=== PATIENT | female | born 1990 | race American Indian/Alaskan Native ===

== ENCOUNTER 2016-12-01 09:06 | Emergency (ER) | payer SELFPAY ==
[2016-12-01 09:55] LABS: Basophils % (Auto) 0.4 % (0.0-1.8); Eosinophils % (Auto) 1.2 % (0.0-4.3); Hematocrit 38.1 % (30.3-42.9); Hemoglobin 12.6 gm/dl (10.1-14.3); Mean Corpuscular HGB Conc 33 % (30-34); Mean Corpuscular Hemoglobin 30 pg (28-32); Mean Corpuscular Volume 90 fl (79-97); Platelet Count 249 K/mm3 (140-440); Red Blood Count 4.23 M/mm3 (3.65-5.03); Red Cell Distribution Width 15.4 % (13.2-15.2)
[2016-12-01 10:08] LABS: Alanine Aminotransferase 12 units/L (7-56); Albumin 3.8 g/dL (3.9-5); Albumin/Globulin Ratio 1.1 %; Alkaline Phosphatase 37 units/L (35-129); Anion Gap 18 mmol/L; Blood Urea Nitrogen 6 mg/dL (7-17); Calcium 9.2 mg/dL (8.4-10.2); Carbon Dioxide 22 mmol/L (22-30); Chloride 97.7 mmol/L (98-107); Glucose 78 mg/dL (65-100); Lipase 12 units/L (13-60); Potassium 3.7 mmol/L (3.6-5.0); Sodium 134 mmol/L (137-145); Total Protein 7.4 g/dL (6.3-8.2)
[2016-12-01 10:45] LABS: Bacteria,Urine 2+ /HPF (Negative); Bilirubin,Urine NEG (Negative); Blood,Urine NEG (Negative); Ketones,Urine 80 mg/dL (Negative); Leukocyte Esterase,Urine LG (Negative); Mucus,Urine 2+ /HPF; Nitrite,Urine NEG (Negative); Protein,Urine <15 mg/dL mg/dL (Negative); Urobilinogen,Urine < 2.0 mg/dL (<2.0)
--- NOTE | 2016-12-01 12:13 | Ultrasound Report ---
ULTRASOUND OB LESS THAN 14 WEEKS ULTRASOUND OB TRANSVAGINAL HISTORY: Abdominal pain during . FINDINGS: Transabdominal and transvaginal imaging was performed. The uterus measures 11 x 8 x 9 cm. An intrauterine is identified with heart rate measuring 173 beats per minute. Estimated age on ultrasound 9 weeks, 3 days. Estimated due date 07/03/17. The ovaries are unremarkable. No adnexal cyst or mass. No pelvic fluid collection. IMPRESSION: Viable, single intrauterine . No acute abnormality is appreciated.
--- NOTE | 2016-12-01 14:14 | Emergency Department Report ---
ED General Adult HPI - General Chief complaint: Abdominal Pain Stated complaint: /LOWER ABD PAIN Time Seen by Provider: 12/01/16 13:45 Source: patient, RN notes reviewed Mode of arrival: Ambulatory Limitations: No Limitations - History of Present Illness Initial comments: 26-year-old female presents to the emergency department complaining of abdominal pain. Patient states she is approximately 8 weeks , A1. She describes cramping lower abdominal pain that has been intermittent for the past 3 weeks. She reports nausea and vomiting intermittently for approximately 5 weeks. She denies fever, diarrhea, vaginal bleeding, or vaginal discharge. She is also complaining of nasal congestion. There are no other complaints. -: Gradual, week(s) (3) Location: abdomen Radiation: non-radiation Severity scale (0 -10): 3 Quality: other (cramping) Consistency: intermittent Improves with: none Worsens with: none Associated Symptoms: nausea/vomiting Treatments Prior to Arrival: none - Related Data Previous Rx's Medication Instructions Recorded Last Taken Type Cetirizine HCl [ZyrTEC] 10 mg PO DAILY #20 tab.chew 11/28/15 Unknown Rx Sulfamethoxazole/Trimethoprim 1 each PO BID #20 tablet 11/28/15 Unknown Rx [Bactrim DS TAB] Allergies Allergy/AdvReac Type Severity Reaction Status Date / Time No Known Allergies Allergy Verified 11/27/15 23:29 ED Review of Systems ROS: Stated complaint: /LOWER ABD PAIN Other details as noted in HPI Comment: All other systems reviewed and negative ENT: congestion Gastrointestinal: abdominal pain, nausea, vomiting ED Past Medical Hx - Past Medical History Previous Medical History?: No - Surgical History Past Surgical History?: No - Family History Family history: no significant - Social History Smoking Status: Former Smoker Substance Use Type: None - Medications Home Medications: Home Medications Medication Instructions Recorded Confirmed Last Taken Type Cetirizine HCl [ZyrTEC] 10 mg PO DAILY #20 tab.chew 11/28/15 Unknown Rx Sulfamethoxazole/Trimethoprim 1 each PO BID #20 tablet 11/28/15 Unknown Rx [Bactrim DS TAB] ED Physical Exam - General Limitations: No Limitations General appearance: alert, in no apparent distress - Head Head exam: Present: atraumatic, normocephalic - Eye Eye exam: Present: normal appearance, PERRL, EOMI - ENT ENT exam: Present: normal exam, normal orophraynx, mucous membranes moist - Neck Neck exam: Present: normal inspection, full ROM. Absent: tenderness - Respiratory Respiratory exam: Present: normal lung sounds bilaterally. Absent: respiratory distress - Cardiovascular Cardiovascular Exam: Present: regular rate, normal rhythm, normal heart sounds - GI/Abdominal GI/Abdominal exam: Present: soft, normal bowel sounds. Absent: distended, tenderness - Extremities Exam Extremities exam: Present: normal inspection, full ROM. Absent: tenderness - Back Exam Back exam: Present: normal inspection, full ROM. Absent: tenderness - Neurological Exam Neurological exam: Present: alert, oriented X3. Absent: motor sensory deficit - Skin Skin exam: Present: warm, dry, intact ED Course Vital Signs 12/01/16 09:18 Temperature 98.6 F Pulse Rate 101 H Respiratory 16 Rate Blood Pressure 135/83 O2 Sat by Pulse 100 Oximetry ED Medical Decision Making - Lab Data Result diagrams: 12/01/16 09:30 12/01/16 09:30 - Radiology Data Radiology results: report reviewed Pelvic ultrasound reveals a single, live intrauterine with estimated gestational age of 9 weeks, 3 days. heart rate is measured at 173 bpm. There are no other acute abnormalities. - Medical Decision Making Lab and imaging results reviewed and discussed with the patient. 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 - Differential Diagnosis abdominal pain, dehydration, UTI Critical care attestation.: If time is entered above; I have spent that time in minutes in the direct care of this critically ill patient, excluding procedure time. ED Disposition Clinical Impression: Abdominal pain affecting Disposition: DISCHARGED TO HOME OR SELFCARE Is pt being admited?: No Condition: Stable Instructions: Abdominal Pain (ED) Additional Instructions: You may take Tylenol for pain and Benadryl for nasal congestion. Be sure to follow up with your EXCEPTIONAL STUDENT EDUCATION TEACHER. If symptoms worsen, or new symptoms develop, return to the emergency department. Referrals: DANIELLE BROWN MD [Staff Physician] - 3-5 Days Time of Disposition: 14:14
[2016-12-01 14:27] VITALS: BP 118/68
== END 2016-12-01 14:27 | disposition home or self-care (01) ==
LOC: ED 09:06
DX: O26.891 Other specified pregnancy related conditions, first trimester (principal); R10.30 Lower abdominal pain, unspecified; Z87.891 Personal history of nicotine dependence; Z3A.01 Less than 8 weeks gestation of pregnancy
CPT/HCPCS: 36415; 76801; 76830; 80053; 81001; 83690; 84702; 84703; 85025

== ENCOUNTER 2020-08-05 08:33 | Outpatient (CLI) | payer MEDICAID ==
[2020-08-05 10:18] VITALS: BP 131/83
== END 2020-08-05 10:27 | disposition home or self-care (01) ==
LOC: TRG 08:33
PROVIDERS: ATTEND Obstetrics & Gynecology
DX: O26.853 Spotting complicating pregnancy, third trimester (principal); Z3A.37 37 weeks gestation of pregnancy
CPT/HCPCS: 59025

== ENCOUNTER 2020-08-05 23:06 | Inpatient (IN) | payer MEDICAID ==
[2020-08-05] MEDS ORDERED: fentaNYL 100 MCG/2 ML INJ IV PRN (23:32)
[2020-08-05] MEDS ORDERED: MINERAL OIL 30 ML ORAL LIQD PO PRN (23:32)
[2020-08-05] MEDS ORDERED: ePHEDrine SULFATE 50 MG/1 ML INJ IV PRN (23:32)
[2020-08-05] MEDS ORDERED: TERBUTALINE 1 MG/1 ML INJ SUB-Q PRN (23:32)
[2020-08-05] MEDS ORDERED: ONDANSETRON 4 MG/2 ML INJ IV PRN (23:32)
[2020-08-05] MEDS ORDERED: BUTORPHANOL 2 MG/1 ML INJ IV PRN (23:32)
[2020-08-05] MEDS ORDERED: LIDOCAINE (2%) 20 MG/1 ML VIAL 20 ML MDV INFILTRATI ONE (23:32)
[2020-08-05] MEDS ORDERED: LACTATED RINGERS 1,000 ML IV SCH (23:45)
[2020-08-05] MEDS ORDERED: OXYTOCIN DRIP 30 UNITS/500 ML BAG IV SCH (23:45)
[2020-08-05 23:59] LABS: Hematocrit 33.1 % (30.3-42.9); Hemoglobin 10.5 gm/dl (10.1-14.3); Mean Corpuscular HGB Conc 32 % (30-34); Mean Corpuscular Volume 76 fl (79-97); Platelet Count 313 K/mm3 (140-440); Red Blood Count 4.35 M/mm3 (3.65-5.03)
[2020-08-06 00:01] LABS: Red Cell Distribution Width 20.7 % (13.2-15.2)
[2020-08-06] MEDS ORDERED: AMPICILLIN/NS 2 GM/100 ML 2 GM/100 ML BAG IV ONE (00:21)
--- NOTE | 2020-08-06 01:24 | History and Physical Report ---
History of Present Illness Date of examination: 08/06/20 Date of admission: 08/05/20 23:32 Chief complaint: contractions History of present illness: 30y/o @ 37+4 weeks presents in acitve labor with advanced cervical dilation. She denies leakage of fluid. Prenantal records are not available for review. Patient reports a history of gestational diabetes. She states she is GBS negative. Past History Past Medical History: other (gestational diabetes) Past Surgical History: no surgical history Social history: no significant social history - Obstetrical History Expected Date of Delivery: 08/22/20 Actual Gestation: 37 Week(s) 5 Day(s) : 4 Para: 2 Hx # Term Pregnancies: 2 Number of Pregnancies: 0 Spontaneous Abortions: 0 Induced : 1 Number of Living Children: 2 Medications and Allergies Allergies Allergy/AdvReac Type Severity Reaction Status Date / Time No Known Allergies Allergy Verified 11/27/15 23:29 Home Medications Medication Instructions Recorded Confirmed Last Taken Type metFORMIN 500 mg PO BID 08/05/20 08/05/20 08/04/20 History Active Meds: Active Medications Butorphanol Tartrate (Butorphanol 2 Mg/1 Ml Inj) 2 mg IV Q2H PRN PRN Reason: Pain , Severe (7-10) Ephedrine Sulfate (Ephedrine Sulfate 50 Mg/1 Ml Inj) 10 mg IV Q2M PRN PRN Reason: Hypotension Fentanyl (Fentanyl 100 Mcg/2 Ml Inj) 100 mcg IV Q2H PRN PRN Reason: Pain,Severe (7-10) LABOR PAIN Last Admin: 08/05/20 23:42 Dose: 100 mcg Documented by: Lactated Ringer's (Lactated Ringers) 1,000 mls @ 125 mls/hr IV DIRECT BIPIN Last Admin: 08/05/20 23:58 Dose: 1,200 mls/hr Documented by: Oxytocin/Sodium Chloride (Pitocin/Ns 30 Unit/500ml) 30 units in 500 mls @ 40 mls/hr IV TITR BIPIN; Protocol Ampicillin Sodium (Ampicillin/Ns 1 Gm/50 Ml) 1 gm in 50 mls @ 100 mls/hr IV Q4H BIPIN; Protocol Mineral Oil (Mineral Oil 30 Ml Oral Liqd) 30 ml PO QHS PRN PRN Reason: Constipation Ondansetron HCl (Ondansetron 4 Mg/2 Ml Inj) 4 mg IV Q8H PRN PRN Reason: Nausea And Vomiting Terbutaline Sulfate (Terbutaline 1 Mg/1 Ml Inj) 0.25 mg SUB-Q ONCE PRN PRN Reason: Hyperstimulation/Hypertonicity Review of Systems All systems: negative Genitourinary: contractions - Vital Signs Vital signs: Vital Signs Pulse Pulse Ox 127 H 97 08/05/20 23:52 08/05/20 23:52 Temp Pulse Resp BP Pulse Ox 123 H 160/88 98 08/06/20 01:17 08/06/20 01:15 08/06/20 01:17 - Physical Exam Breasts: Positive: deferred Cardiovascular: Regular rate Lungs: Positive: Clear to auscultation Abdomen: Positive: normal appearance Results Result Diagrams: 08/05/20 23:40 Abnormal lab results 08/05/20 Range/Units 23:40 WBC 12.0 H (4.5-11.0) K/mm3 MCV 76 L (79-97) fl MCH 24 L (28-32) pg RDW 20.7 H (13.2-15.2) % All other labs normal. Assessment and Plan - Patient Problems (1) Active labor at term Current Visit: Yes Status: Acute Plan to address problem: admit to labor and delivery
[2020-08-06] MEDS ORDERED: NalbUPHINE 10 MG/1 ML INJ IV PRN (01:30)
[2020-08-06] MEDS ORDERED: NALOXONE 2 MG/2 ML INJ IV PRN (01:30)
[2020-08-06] MEDS ORDERED: diphenhydrAMINE 50 MG/ML VIAL IV PRN (01:30)
--- NOTE | 2020-08-06 01:32 | Anesthesia Consultation ---
Anesthesia Consult and Med Hx Date of service: 08/06/20 - Airway Anesthetic Teeth Evaluation: Good ROM Head & Neck: Adequate Mental/Hyoid Distance: Adequate Mallampati Class: Class II Intubation Access Assessment: Probably Good - Pulmonary Exam CTA: Yes - Cardiac Exam Cardiac Exam: RRR - Pre-Operative Health Status ASA Pre-Surgery Classification: ASA2 Proposed Anesthetic Plan: Epidural - Pulmonary Hx Smoking: No Hx Asthma: No Hx Sleep Apnea: No - Cardiovascular System Hx Hypertension: No Hx Heart Attack/AMI: No Hx Angina: No - Central Nervous System Hx Seizures: No Hx Psychiatric Problems: No - Gastrointestinal Hx Gastroesophageal Reflux Disease: No - Endocrine Hx Renal Disease: No Hx Insulin Dependent Diabetes: No Hx Non-Insulin Dependent Diabetes: No Hx Hypothyroidism: No Hx Hyperthyroidism: No - Hematic Hx Anemia: No Hx Sickle Cell Disease: No - Other Systems Hx Alcohol Use: No
--- NOTE | 2020-08-06 01:33 | Progress Note ---
Labor Epidural - Labor Epidural Start Time: 01:00 Stop Time: :20 Performed by:: VEL ANAND Procedure: Patient is requesting combined spinal epidural for labor and pain. H&P, labs were reviewed. All questions and concerns were answered. Informed consent was obtained. Timeout performed. Patient in sitting position on side of bed. Sterile prep and drape was performed. 3 mL 1% lidocaine skin wheal at L [3]-L [4]. 18-gauge Touhy epidural needle advanced to [id number] using air technique, [6cm]. 27-gauge spinal needle advanced, positive free-flowing CSF. Spinal dose of [Marcaine 3.375mg]. Epidural catheter advanced to [11] cm. [-] Aspiration, [-] test dose. Sterile dressing applied. Patient tolerated procedure well.
[2020-08-06] MEDS ORDERED: fentaNYL-BUPIV 2 MCG/ML-0.125% 200 MCG/100 ML BAG EPIDURAL SCH (02:00)
[2020-08-06] MEDS ORDERED: PROMETHAZINE 25 MG RECT SUPP PR PRN (02:33)
[2020-08-06] MEDS ORDERED: ONDANSETRON 4 MG/2 ML INJ IV PRN (02:33)
[2020-08-06] MEDS ORDERED: MAGNESIUM HYDROXIDE (MOM) ORAL LIQD UDC PO PRN (02:33)
[2020-08-06] MEDS ORDERED: LANOLIN/ZINC/DIMETHICONE (LANSINOH) 7 GM TP PRN (02:33)
[2020-08-06] MEDS ORDERED: WITCH HAZEL/ GLYCERIN PAD TP PRN (02:33)
[2020-08-06] MEDS ORDERED: diphenhydrAMINE 25 MG CAP PO PRN (02:33)
[2020-08-06] MEDS ORDERED: HYDROcodone/ACETAMINOPHEN 5-325 MG TAB PO PRN (02:33)
[2020-08-06] MEDS ORDERED: PROMETHAZINE 25 MG TAB PO PRN (02:33)
--- NOTE | 2020-08-06 02:33 | Procedure Note ---
OB Delivery Note - Delivery Date of Delivery: 08/06/20 Surgeon: LEVAR RAMIRES Estimated blood loss: 100cc - Vaginal Delivery presentation: vertex Delivery position: OA Delivery monitor: external FHT, external uterine Route of delivery: Delivery placenta: spontaneous Delivery cord: nuchal cord, 3 umbilical vessels Episiotomy: none Delivery laceration: 1st degree Anesthesia: epidural - A at 1 minute: 8 at 5 minutes: 9 Gender: Male (weight 8lbs 9oz)
[2020-08-06] MEDS: IBUPROFEN 600 MG TAB PO SCH ×4 (03:52→21:37)
[2020-08-06] MEDS ORDERED: AMPICILLIN/NS 1 GM/50 ML 1 GM/50 ML BAG IV SCH (05:00)
--- NOTE | 2020-08-06 10:54 | Post Anesthesia Evaluation ---
- Post Anesthesia Evaluation Patient Participated: Yes Airway Patent: Yes Stable Respiratory Function: Yes Nausea/Vomiting: No Temp > 96.8F: Yes Pain Manageable: Yes Adequeate Hydration: Yes Anesthesia Complications: No Block Receding Appropriately: Yes Patient on Ventilator: No
[2020-08-06 17:08] LABS: Hematocrit 28.1 % (30.3-42.9)
[2020-08-07] MEDS: IBUPROFEN 600 MG TAB PO SCH ×3 (03:00→13:25)
--- NOTE | 2020-08-07 07:56 | Progress Note ---
Assessment and Plan A: PPD1 s/p Vital signs stable Acute on chronic anemia due to and blood loss Constipation P: Ferrous sulfate supplementation Colace PRN Discharge to home today Subjective - Subjective Date of service: 08/07/20 Principal diagnosis: s/p Interval history: PPD1 s/p Patient reports: appetite normal, voiding normally, pain well controlled, ambulating normally [place]: doing well, nursing well (both), bottle feeding Objective - Vital Signs Latest vital signs: Vital Signs Temp Pulse Resp BP BP Pulse Ox 08/07/20 00:23 97.9 F 92 H 20 120/75 99 08/06/20 15:30 98.6 F 104 H 20 127/78 08/06/20 12:53 98.2 F 108 H 20 117/81 08/06/20 08:35 97.9 F 102 H 20 132/88 Intake and Output 08/06/20 08/06/20 08/07/20 15:59 23:59 07:59 Intake Total 880 560 360 Output Total 1900 Balance -1020 560 360 Intake: Oral 880 320 Intake, Free Water 240 360 Output: Urine 1900 Void 1900 Other: Total, Intake Amount 320 320 Total, Output Amount 900 # Voids Void 1 1 1 - Exam Abdomen: Present: soft. Absent: distention, tenderness, guarding Uterus: Present: firm, fundal height below umbilicus. Absent: bogginess, tenderness Extremities: Present: normal - Labs Labs: Abnormal lab results 08/06/20 Range/Units 16:07 Hgb 9.0 L (10.1-14.3) gm/dl Hct 28.1 L (30.3-42.9) %
--- NOTE | 2020-08-07 07:57 | Discharge Summary ---
Providers - Providers Date of Admission: 08/05/20 23:32 Date of discharge: 08/07/20 Attending physician: LEVAR RAMIRES Primary care physician: LEVAR RAMIRES Hospitalization Reason for admission: active labor, IUP at term Delivery: Episiotomy: none Laceration: 1st degree Other procedures: none complications: none Discharge diagnosis: IUP at term delivered baby: male Hospital course: Pt arrived in active labor and had an . She will follow up with [place] [facility] in 2-4 weeks, and then 6 weeks for a 2-hr OGTT. Condition at discharge: Good Disposition: DC- TO HOME OR SELFCARE Plan - Discharge Medications Prescriptions: Docusate Sodium [Colace] 100 mg PO BID PRN #60 capsule PRN Reason: Constipation Ferrous Sulfate [Feosol 325 MG tab] 325 mg PO BID #60 tablet Ibuprofen [Motrin] 600 mg PO Q6H PRN #60 tablet PRN Reason: Pain - Provider Discharge Summary Activity: routine, no sex for 6 weeks, no heavy lifting 4 weeks, no strenuous exercise Diet: routine Instructions: routine Additional instructions: [] Smoking cessation referral if applicable(refer to patient education folder for contact #) [] Refer to [facility]'s [facility] Booklet Call your doctor immediately for: * Fever > 100.5 * Heavy vaginal bleeding ( >1 pad per hour) * Severe persistent headache * Shortness of breath * Reddened, hot, painful area to leg or breast * Drainage or odor from incision. * Keep incision clean and dry at all times and follow doctor's instructions regarding bathing/showering - Follow up plan Follow up: ROMMEL COLE CNM [Advanced Practice Nurse] - 14 Days (Please call office to schedule appointment.)
[2020-08-07] MEDS ORDERED: FERROUS SULFATE 325 MG TAB PO SCH (09:00)
[2020-08-07] MEDS ORDERED: DOCUSATE SODIUM 100 MG CAP PO SCH (10:00)
[2020-08-07 15:47] VITALS: BP 141/87
== END 2020-08-07 16:35 | disposition home or self-care (01) | DRG 775 ==
LOC: TRG 23:06 → APU 23:07 → TRG 23:32 → LD 23:32 → OB 08-06 05:07
PROVIDERS: ADMIT Obstetrics & Gynecology; ATTEND Obstetrics & Gynecology
PROC: 10E0XZZ Delivery of Products of Conception, External Approach (ICD-10-PCS; principal; 2020-08-06)
PROC: 3E0R3BZ Introduction of Anesthetic Agent into Spinal Canal, Percutaneous Approach (ICD-10-PCS; 2020-08-06)
PROC: 00HU33Z Insertion of Infusion Device into Spinal Canal, Percutaneous Approach (ICD-10-PCS; 2020-08-06)
PROC: 0HQ9XZZ Repair Perineum Skin, External Approach (ICD-10-PCS; 2020-08-06)
DX: O24.429 Gestational diabetes mellitus in childbirth, unspecified control (principal); Z20.822 Contact with and (suspected) exposure to COVID-19; Z3A.37 37 weeks gestation of pregnancy; Z37.0 Single live birth; O70.0 First degree perineal laceration during delivery; O99.02 Anemia complicating childbirth; D62 Acute posthemorrhagic anemia
CPT/HCPCS: 36415; 85014; 85018; 85027; 86592; 86850; 86900; 86901; 96361; 96365; 96374; G0378; J0290; J2590; J3010; J7120; U0003

== ENCOUNTER 2021-09-30 23:50 | Inpatient (IN) | payer MEDICAID ==
[2021-10-01] MEDS ORDERED: BUTORPHANOL 2 MG/1 ML INJ IV PRN (04:14)
[2021-10-01] MEDS ORDERED: TERBUTALINE 1 MG/1 ML INJ SUB-Q PRN (04:14)
[2021-10-01] MEDS ORDERED: LIDOCAINE (2%) 20 MG/1 ML VIAL 20 ML MDV INFILTRATI ONE (04:14)
[2021-10-01] MEDS ORDERED: NALOXONE 0.4 MG/1 ML INJ IV PRN (04:14)
[2021-10-01] MEDS ORDERED: CARBOPROST TROMETHAMINE 250 MCG/1 ML INJ IM PRN (04:14)
[2021-10-01] MEDS ORDERED: OXYTOCIN 10 UNIT/1 ML INJ IM PRN (04:14)
[2021-10-01] MEDS ORDERED: METHYLERGONOVINE MALEATE 0.2 MG/ML VIAL IM PRN (04:14)
[2021-10-01] MEDS ORDERED: ePHEDrine SULFATE 50 MG/1 ML INJ IV PRN ×2 (04:14→07:30)
[2021-10-01] MEDS ORDERED: miSOPROStol 200 MCG TAB PR PRN (04:14)
[2021-10-01] MEDS ORDERED: ACETAMINOPHEN 325 MG TAB PO PRN (04:14)
[2021-10-01] MEDS ORDERED: ONDANSETRON 4 MG/2 ML INJ IV PRN ×3 (04:14→17:00)
[2021-10-01] MEDS ORDERED: LOPERAMIDE 2 MG CAP PO PRN (04:14)
[2021-10-01] MEDS ORDERED: MINERAL OIL 30 ML ORAL LIQD PO PRN (04:14)
[2021-10-01] MEDS ORDERED: fentaNYL 100 MCG/2 ML INJ IV PRN (04:14)
[2021-10-01] MEDS ORDERED: DEXTROSE 50% IN WATER (25GM) 50 ML SYRINGE IV PRN (04:19)
[2021-10-01] MEDS ORDERED: INSULIN REGULAR, HUMAN 100 UNITS/1 ML SUB-Q PRN (04:19)
[2021-10-01] MEDS ORDERED: DEXTROSE 10% *Hypoglycemia IV PRN (04:33)
[2021-10-01] MEDS: LACTATED RINGERS 1,000 ML IV SCH ×3 (04:40→11:56)
[2021-10-01] MEDS ORDERED: OXYTOCIN DRIP 30 UNITS/500 ML BAG IV SCH ×2 (05:00)
[2021-10-01 06:09] LABS: Hematocrit 29.9 % (30.3-42.9); Hemoglobin 10.1 gm/dl (10.1-14.3); Mean Corpuscular HGB Conc 34 % (30-34); Mean Corpuscular Volume 77 fl (79-97); Platelet Count 219 K/mm3 (140-440); Red Blood Count 3.87 M/mm3 (3.65-5.03)
[2021-10-01 06:14] LABS: Red Cell Distribution Width 27.7 % (13.2-15.2)
[2021-10-01] MEDS ORDERED: LACTATED RINGERS 250 ML IV SOLN IV ONE (07:05)
[2021-10-01] MEDS ORDERED: NalbUPHINE 10 MG/1 ML INJ IV PRN (07:30)
[2021-10-01] MEDS ORDERED: NALOXONE 2 MG/2 ML INJ IV PRN (07:30)
[2021-10-01] MEDS ORDERED: diphenhydrAMINE 50 MG/ML VIAL IV PRN (07:30)
--- NOTE | 2021-10-01 07:43 | Anesthesia Consultation ---
Anesthesia Consult and Med Hx Date of service: 10/01/21 - Airway Anesthetic Teeth Evaluation: Good ROM Head & Neck: Adequate Mental/Hyoid Distance: Adequate Mallampati Class: Class II Intubation Access Assessment: Probably Good - Pulmonary Exam CTA: Yes - Cardiac Exam Cardiac Exam: RRR - Pre-Operative Health Status ASA Pre-Surgery Classification: ASA2 Proposed Anesthetic Plan: Epidural - Pulmonary Hx Smoking: No Hx Asthma: No Hx Sleep Apnea: No - Cardiovascular System Hx Hypertension: No Hx Heart Attack/AMI: No Hx Angina: No - Central Nervous System Hx Seizures: No Hx Psychiatric Problems: No - Gastrointestinal Hx Gastroesophageal Reflux Disease: No - Endocrine Hx Renal Disease: No Hx Liver Disease: No Hx Insulin Dependent Diabetes: No Hx Non-Insulin Dependent Diabetes: No Hx Hypothyroidism: No Hx Hyperthyroidism: No - Hematic Hx Anemia: No Hx Sickle Cell Disease: No - Other Systems Hx Alcohol Use: No
--- NOTE | 2021-10-01 07:44 | Progress Note ---
Labor Epidural - Labor Epidural Start Time: 07:24 Stop Time: 07:36 Performed by:: VEL ANAND Procedure: Patient is requesting epidural for labor and pain. H&P, labs were reviewed. Patient IDed, all questions and concerns were answered, and consent was signed. Timeout was performed at bedside. Patient in sitting position. Sterile prep and drape was performed. 3ml of 1% lidocaine skin wheal at L[3]- L [4]. 17- gauge Tuohy epidural needle was advanced to loss of resistance with air technique 6cm. Negative CSF negative blood. Epidural catheter advanced to [11] centimeters. [negative] Aspiration [negative] test dose. Sterile dressing applied. Patient tolerated procedure.
[2021-10-01] MEDS: fentaNYL-BUPIV 2 MCG/ML-0.125% 200 MCG/100 ML BAG EPIDURAL SCH ×2 (07:50→14:53)
--- NOTE | 2021-10-01 08:44 | History and Physical Report ---
History of Present Illness Date of examination: 10/01/21 Date of admission: 10/01/21 04:15 Chief complaint: IOL secondary to DM History of present illness: 31 yo, @ 38.2 wks, initiated care with [place] [facility] coding team lead at 13.1 wks gestation. Her has been complicated by hx of GDM (co-mnaged by [facility]), BECKY, and short interval between pregnancies. Reported to [facility] last night for reports of leaking fluid since 2300. Reports + FM. Denies any VB. Labs: O+, antibody negtive; rubella immune; VDRL negative; HIV negative; HSV2 negative; plts 295; GC/Chlamydia/Trichomonas negative NIPT negative; 1 hr gtt 131; 3 hr gtt: 97, 209, 128, 121; GBS negative. Past History Past Medical History: diabetes Past Surgical History: other () [employer] History: trichomonas Family/Genetic History: diabetes, hypertension Social history: single, lives with family, full code. denies: smoking, alcohol abuse, prescription drug abuse, IV drug use - Obstetrical History Expected Date of Delivery: 10/13/21 Actual Gestation: 38 Week(s) 2 Day(s) : 6 Para: 3 Hx # Term Pregnancies: 3 Number of Pregnancies: 0 Spontaneous Abortions: 2 Induced : 0 Number of Living Children: 3 Medications and Allergies Allergies Allergy/AdvReac Type Severity Reaction Status Date / Time No Known Allergies Allergy Verified 11/27/15 23:29 Home Medications Medication Instructions Recorded Confirmed Last Taken Type metFORMIN 500 mg PO BID 08/05/20 08/05/20 08/04/20 History Docusate Sodium [Colace] 100 mg PO BID PRN #60 capsule 08/07/20 Unknown Rx Ferrous Sulfate [Feosol 325 MG tab] 325 mg PO BID #60 tablet 08/07/20 Unknown Rx Ibuprofen [Motrin] 600 mg PO Q6H PRN #60 tablet 08/07/20 Unknown Rx Active Meds: Active Medications Acetaminophen (Acetaminophen 325 Mg Tab) 650 mg PO Q4H PRN PRN Reason: Pain, Mild (1-3) Butorphanol Tartrate (Butorphanol 2 Mg/1 Ml Inj) 1 mg IV Q2H PRN PRN Reason: Pain, Moderate(4-6) LABOR PAIN Carboprost Tromethamine (Carboprost Tromethamine 250 Mcg/1 Ml Inj) 250 mcg IM ONCE PRN PRN Reason: Uterine Bleeding Dextrose (Dextrose 10% *Hypoglycemia) 0 ml IV PRN PRN PRN Reason: Hypoglycemia Diphenhydramine HCl (Diphenhydramine 50 Mg/Ml Vial) 12.5 mg IV Q2H PRN PRN Reason: Itching Ephedrine Sulfate (Ephedrine Sulfate 50 Mg/1 Ml Inj) 10 mg IV Q2M PRN PRN Reason: Hypotension Fentanyl (Fentanyl 100 Mcg/2 Ml Inj) 100 mcg IV Q2H PRN PRN Reason: Pain,Severe (7-10) LABOR PAIN Oxytocin/Sodium Chloride (Pitocin/Ns 30 Unit/500ml) 30 units in 500 mls @ 2 mls/hr IV TITR BIPIN; Protocol Last Titration: 10/01/21 06:55 Dose: 6 mls/hr Lactated Ringer's (Lactated Ringers) 1,000 mls @ 125 mls/hr IV DIRECT BIPIN Last Admin: 10/01/21 06:10 Dose: 125 mls/hr Oxytocin/Sodium Chloride (Pitocin/Ns 30 Unit/500ml) 30 units in 500 mls @ 40 mls/hr IV TITR BIPIN; Protocol Fentanyl/Bupivacaine/Sodium Chlor (Fentanyl-Bupiv 2 Mcg/Ml-0.125%) 200 mcg in 100 mls @ 12 mls/hr EPIDURAL TITR BIPIN; Protocol Last Admin: 10/01/21 07:50 Dose: 12 mls/hr Insulin Human Regular (Insulin Regular, Human 100 Units/1 Ml) 0 units SUB-Q Q4H PRN; Protocol PRN Reason: Hyperglycemia Loperamide HCl (Loperamide 2 Mg Cap) 2 mg PO ONCE PRN PRN Reason: give with Hemabate Methylergonovine Maleate (Methylergonovine Maleate 0.2 Mg/Ml Vial) 0.2 mg IM ONCE PRN PRN Reason: Uterine Bleeding Mineral Oil (Mineral Oil 30 Ml Oral Liqd) 30 ml PO QHS PRN PRN Reason: Constipation Misoprostol (Misoprostol 200 Mcg Tab) 800 mcg SD ONCE PRN PRN Reason: Uterine Bleeding Nalbuphine HCl (Nalbuphine 10 Mg/1 Ml Inj) 2.5 mg IV Q2H PRN PRN Reason: Itching Naloxone HCl (Naloxone 2 Mg/2 Ml Inj) 0.2 mg IV Q5M PRN PRN Reason: Respiratory sedation Ondansetron HCl (Ondansetron 4 Mg/2 Ml Inj) 4 mg IV Q8H PRN PRN Reason: Nausea And Vomiting Oxytocin (Oxytocin 10 Unit/1 Ml Inj) 10 unit IM ONCE PRN PRN Reason: Uterine Bleeding Terbutaline Sulfate (Terbutaline 1 Mg/1 Ml Inj) 0.25 mg SUB-Q ONCE PRN PRN Reason: Hyperstimulation/Hypertonicity Review of Systems All systems: negative Genitourinary: leakage of fluid - Vital Signs Vital signs: Vital Signs Pulse Pulse Ox 112 H 99 10/01/21 03:30 10/01/21 03:30 Temp Pulse Resp BP Pulse Ox 98 F 126 H 98/56 96 10/01/21 06:22 10/01/21 08:37 10/01/21 08:37 10/01/21 08:34 - Physical Exam Breasts: Positive: normal Cardiovascular: Regular rate Lungs: Positive: Normal air movement Abdomen: Positive: other (gravid) Uterus: Positive: enlarged (S=D) Extremities: Positive: edema Deep Tendon Reflex Grade: Normal +2 - Obstetrical FHR: category 1 Uterine Contraction Monitor Mode: External Cervical Dilatation: 4 (per RN) Cervical Effacement Percentage: 80 (Pitocin @ 8mu/min) station: -2 Uterine Contraction Frequency (min): 3 Uterine Contraction Pattern: Regular Uterine Tone Measurement Phase: Resting Uterine Contraction Intensity: Mild Results Result Diagrams: 10/01/21 05:26 Abnormal lab results 10/01/21 Range/Units 05:26 Hct 29.9 L (30.3-42.9) % MCV 77 L (79-97) fl MCH 26 L (28-32) pg RDW 27.7 H (13.2-15.2) % All other labs normal. Assessment and Plan - Patient Problems (1) Spontaneous rupture of membranes Current Visit: Yes Status: Acute Plan to address problem: Continue Pitocin as tolerated Comfortable with epidural Anticipate (2) Diabetes in Current Visit: Yes Status: Acute Qualifiers: Diabetes in type: gestational Plan to address problem: Continue to monitor blood glucose levels per orders (3) Anemia Current Visit: Yes Status: Acute Qualifiers: Anemia type: iron deficiency Plan to address problem: Asymptomatic at this time
[2021-10-01] MEDS ORDERED: BUPIVACAINE/PF (0.25%) 2.5 MG/ML 10 ML VIAL INFILTRATI ONE (14:53)
--- NOTE | 2021-10-01 16:38 | Procedure Note ---
OB Delivery Note - Delivery Date of Delivery: 10/01/21 (0612) Surgeon: RADHA STILES (CNM) Estimated blood loss: 200cc - Vaginal Delivery presentation: vertex Delivery position: OA (TORO) Intrapartum events: none Delivery induction: none Delivery augmentation: pitocin Delivery monitor: external FHT, external uterine Route of delivery: Delivery placenta: spontaneous (mo, disposed) Delivery cord: nuchal cord (x 1, sumersaulted through during delivery), 3 umbilical vessels Episiotomy: none Delivery laceration: none Anesthesia: epidural Delivery comments: of viable, crying female place directly to maternal abdomen. Cord double clamped, cut by FOB after cessation of pulsation. Placenta spontaneously delivered, disposed per hospital policy. Uterus firm @ U-2, hemostasis maintained. Perineum intact. Mother and baby safe, stable and left in care of RN. - A at 1 minute: 8 at 5 minutes: 9 Infant Gender: Female (Weight: 3100 gms (6lbs 13oz) 19 inches)
[2021-10-01] MEDS ORDERED: PROMETHAZINE 25 MG TAB PO PRN (17:00)
[2021-10-01] MEDS ORDERED: diphenhydrAMINE 25 MG CAP PO PRN (17:00)
[2021-10-01] MEDS ORDERED: MAGNESIUM HYDROXIDE (MOM) ORAL LIQD UDC PO PRN (17:00)
[2021-10-01] MEDS ORDERED: WITCH HAZEL/ GLYCERIN PAD TP PRN (17:00)
[2021-10-01] MEDS: IBUPROFEN 800 MG TAB PO SCH (18:55)
[2021-10-01] MEDS: LANOLIN/ZINC/DIMETHICONE (LANSINOH) 7 GM TP PRN (22:28)
[2021-10-01] MEDS: oxyCODONE /ACETAMINOPHEN 5-325MG TAB PO PRN (23:18)
[2021-10-02] MEDS: IBUPROFEN 800 MG TAB PO SCH ×4 (00:43→20:40)
[2021-10-02 04:58] LABS: Hematocrit 31.7 % (30.3-42.9)
--- NOTE | 2021-10-02 08:36 | Discharge Summary ---
Providers - Providers Date of Admission: 10/01/21 04:15 Date of discharge: 10/02/21 (1900) Attending physician: CHRISTIE RICHTER Primary care physician: CHRISTIE RICHTER Hospitalization Reason for admission: rupture of membranes Delivery: Episiotomy: none Laceration: none Other procedures: none complications: none Discharge diagnosis: IUP at term delivered baby: female Hospital course: 31 yo, @ 38.2 wks, initiated care with [facility] at 13.1 wks gestation. Her has been complicated by hx of GDM (co-mnaged by [facility]), BECKY, and short interval between pregnancies. Reported to [facility] last night for reports of leaking fluid since 2300. Reports + FM. Denies any VB. Labs: O+, antibody negtive; rubella immune; VDRL negative; HIV negative; HSV2 n egative; plts 295; GC/Chlamydia/Trichomonas negative NIPT negative; 1 hr gtt 131; 3 hr gtt: 97, 209, 128, 121; GBS negative. Delivered viable female infant. course uncomplicated, met discharge criteria and desires to go home on PPD#1 if baby can be discharged also. Condition at discharge: Good Disposition: 01 HOME / SELF CARE / HOMELESS - Discharge Diagnoses (1) Diabetes in Status: Acute Qualifiers: Diabetes in type: gestational (2) Anemia Status: Acute Qualifiers: Anemia type: iron deficiency Comment: Asymptomatic Increase iron rich foods into diet (3) Status post normal vaginal delivery Status: Acute Plan - Discharge Medications Prescriptions: Ibuprofen [Motrin 800 MG tab] 800 mg PO Q8HR #30 tablet - Provider Discharge Summary Activity: routine, no sex for 6 weeks, no heavy lifting 4 weeks, no strenuous exercise Diet: other (Iron rich diet) Instructions: routine Additional instructions: [] Smoking cessation referral if applicable(refer to patient education folder for contact #) [] Refer to [facility] Booklet Call your doctor immediately for: * Fever > 100.5 * Heavy vaginal bleeding ( >1 pad per hour) * Severe persistent headache * Shortness of breath * Reddened, hot, painful area to leg or breast - Follow up plan Follow up: CHRISTIE RICHTER MD [Primary Care Provider] - 6 Weeks
[2021-10-02] MEDS: oxyCODONE /ACETAMINOPHEN 5-325MG TAB PO PRN (09:16)
[2021-10-02] MEDS: PRENATAL VIT27-FE FUMARATE-FOLIC ACID VIT TAB PO SCH (09:17)
[2021-10-02] MEDS: LANOLIN/ZINC/DIMETHICONE (LANSINOH) 7 GM TP PRN (14:33)
[2021-10-03] MEDS: IBUPROFEN 800 MG TAB PO SCH (03:22)
[2021-10-03 08:03] VITALS: BP 116/75
[2021-10-03] MEDS: oxyCODONE /ACETAMINOPHEN 5-325MG TAB PO PRN (09:21)
[2021-10-03] MEDS: PRENATAL VIT27-FE FUMARATE-FOLIC ACID VIT TAB PO SCH (09:21)
== END 2021-10-03 11:00 | disposition home or self-care (01) | DRG 775 ==
LOC: TRG 23:50 → LD 10-01 03:27 → TRG 10-01 04:14 → LD 10-01 04:15 → OB 10-01 18:25
PROVIDERS: ADMIT Obstetrics & Gynecology; ATTEND Obstetrics & Gynecology
PROC: 10E0XZZ Delivery of Products of Conception, External Approach (ICD-10-PCS; principal; 2021-10-01)
PROC: 3E0R3BZ Introduction of Anesthetic Agent into Spinal Canal, Percutaneous Approach (ICD-10-PCS; 2021-10-01)
PROC: 00HU33Z Insertion of Infusion Device into Spinal Canal, Percutaneous Approach (ICD-10-PCS; 2021-10-01)
DX: O24.429 Gestational diabetes mellitus in childbirth, unspecified control (principal); Z3A.38 38 weeks gestation of pregnancy; Z37.0 Single live birth; D50.8 Other iron deficiency anemias; O99.02 Anemia complicating childbirth; O69.81X0 Labor and delivery complicated by cord around neck, without compression, not applicable or unspecified; Z20.822 Contact with and (suspected) exposure to COVID-19
CPT/HCPCS: 36415; 85014; 85018; 85027; 86592; 86850; 86900; 86901; 99211; G0378; J3490; G0463; J2590; J7120; U0003